=== PATIENT | female | born 1990 | race Caucasian/White ===

== ENCOUNTER 2018-11-15 18:55 | Inpatient (IN) | payer OTHER, SELFPAY ==
[2018-11-15] MEDS: Lactated Ringers 1,000 ML 50 ML IV ×3 (20:15→23:40)
[2018-11-15 20:19] VITALS: BMI 32.8
--- NOTE | 2018-11-15 21:04 | PCM.HPOB.BLA ---
History and Physical Date of Admission: 11/15/18 OB HISTORY AND PHYSICAL EXAMINATION History of this : 27 yo female Ab1 with EDC 11/16/2018 by Ultrasound, presents to Labor and Delivery at 39 6/7 wk EGA with CC of [facility]. Last ofc check 1 cm. Now 4 cm. care remarkable for - A positive. GBS NEGATIVE. Rubella immune. 1.) WANTS MSAFP TESTING Pertinent Past Medical History: None. Allergies: Morphine Medications: During - Flagyl 500 mg tablet; 28 mg iron-800 mcg tablet Review of Systems: Non-contributory PHYSICAL EXAMINATION General Appearence: 27 yo female in no acute distress Vital Signs: AF, VSS Heart: RRR without rubs or gallops Lungs: CTA x 2 Breasts: deferred Abdomen: gravid Pelvis: Cervix: 4 cm at presentation now at 6 80/ -2 Presentation: cephalic Size: AGA Movement: present Heart: present 130-140s avg variability Accels. category I tracing. [facility] q 1 1/2 - 2 mins. Impression /Plan: Intrauterine . 39 6/7 wk early labor. Admit. Plans epidural. Anticipate . See Progress Notes for Changes: Physician's Signature: Date: Patient seen and re-examined. History and physical updated at admission. Elder Saxena MD 11/15/18 [id number]
[2018-11-15 21:13] LABS: Absolute Neutrophil Count 7.9 X10^3/uL (2.0-7.7); Basophil# 0.04 X10^3/uL; Basophil% 0.4 % (0-1); Eosinophil# 0.07 X10^3/uL; Eosinophils% 0.6 % (0-5); Hematocrit 36.7 % (37-47); Hemoglobin 12.6 g/dL (12.0-15.0); Lymphocyte % 16.6 % (19-41); Mean Corp Hgb Conc 34.3 g/dL (32-36); Mean Corpuscular Hgb 31.3 pg (27.0-32.0); Mean Corpuscular Volume 91.1 fL (81-99); Mean Platelet Vol. 10.9 fl (6.2-12.0); Monocyte% 8.3 % (0-10); NRBC Flagged by Analyzer 0 % (0-5); Neutrophil # 7.94 X10^3/uL (2.7-7.7); Neutrophil % 73.5 % (47-70); Platelet Count 213 K/mm3 (150-450); RBC Distribution Width CV 12.5 % (11.6-14.6); RBC Distribution Width SD 41.2 fl (35.1-43.9); Red Blood Count 4.03 M/mm3 (4.2-5.4); White Blood Count 10.8 K/mm3 (4.4-11.0)
[2018-11-15] MEDS: fentaNYL-bupivacaine (epidural) 100 ML BAG EPIDURAL (22:00)
[2018-11-15] MEDS: CHLORHEXIDINE GLUC 2% CLOTH 1 EACH TOWELETTE TOPICAL (22:22)
[2018-11-15] MEDS: Terbutaline 1 MG/ML Vial 0.25 MG SC (22:23)
--- NOTE | 2018-11-15 22:37 | PCM.PN.BLA ---
Progress Note LABOR PROGRESS NOTE Very uncomfortable initial test dose of epidural given, then bolus and infusion. Feeling much tailbone pain, pushy. Initial attempts at pushing, no descent Direct OP and LGA. AROM of forebag. AVSS EFM Intermittent FHR tracing... Scalp lead placed d/t initial poor tracing, intermittent tracing. FHR decel approx 12 min decel noted with no scalp stimulation. IV fluid bolus, O2 on. Position changes. L, R, Knee chest. No resolution. SC terbutaline. 0.25 mg given times one. 120-130s again with avg variability Accels. Fetus tolerating maternal kneeling position with torso straight, then tolerating hand and knees with peanut ball. Pt to OR. Double set up vs primary C/S depending on stability of FHR tracing. Continue position fetus will tolerate. A/P: 39 6/7 to 40 wk EGA IUP. Nonreassuring FHR tracing to now stable. Will begin pushing when appropriate in OR. LGA, watch descent and tolerance of labor.
[2018-11-16] VITALS (25 sets, daily range): BP systolic 107–124; BP diastolic 56–77; PULSE 67–98; RESP 14–18; TEMP 36.1–37.4; O2SAT 96–99
--- NOTE | 2018-11-16 01:18 | PCM.PN.BLA ---
Progress Note LABOR PROGRESS NOTE Multip with more than 3 hr without descent. UCs regular and appear adequate. IFM 120-130s avg variability. Category I at present. CX: complete + caput. OP No further descent -1 Significant maternal perineal edema A/P: term IUP. CPD. no descent in 3 hr with epidural , multip. Second stage arrest. Advised pt and spouse re findings. Proceed to primary C/S for CPD.
[2018-11-16] MEDS: Ondansetron 4 MG/2 ML Vial IV (01:21)
[2018-11-16] MEDS: Sodium Citrate/Citric Acid 30 ML UDC PO (01:21)
--- NOTE | 2018-11-16 01:23 | DCINST_ITS ---
Discharge Diet: No Restrictions Discharge Activity: May Shower, May Take a Tub Bath May resume sexual activity in: 4-6 weeks Lifting Restrictions: 20 pounds Additional Activity Instructions:: Nothing in the vagina for 4-6 weeks. You may return to work/school in 6 weeks. Change Dressing in (Days):: 7 Remove Dressing in (days):: 7 Cleanse incision/area with: Soap & Water, Keep Dressing Clean & Dry Additional Instructions: If you experience any of the following, contact your healthcare provider. * Bleeding that soaks a pad every hour for 2 hours * Fever 100.4 or higher * Unrelieved incision or abdominal pain * Swelling, redness, discharge or bleeding from your incision * Problems urinating (including inability to urinate or burning while urinating). * Visual changes * Severe headache * Flu-like symptoms * Pain or redness in one of both of your breasts * Pain, warmth, tenderness or swelling in your legs, especially the calf area * Frequent nausea and vomiting * Symptoms of depression or anxiety If you experience any of the following, call 911 or go to the nearest Emergency Room. * Chest pain * Problems breathing * Seizure activity * Partial or complete paralysis of a body part, slurred speech, weakness or drooping of the face, or a sudden inability to walk or hold your balance Allergies/Adverse Reactions: Allergies amoxicillin [From Augmentin] Allergy (Verified 11/15/18 20:20) Rash clavulanic acid [From Augmentin] Allergy (Verified 11/15/18 20:20) Rash morphine Allergy (Verified 11/15/18 20:20) Nausea Medications to take at Discharge Magnesium 11/15/18 Pnv No.95/Ferrous Fum/Folic AC [ Caplet] 1 ea PO 11/15/18 Docusate Sodium [Colace] 100 mg PO BID #30 cap 11/16/18 Naproxen [Naprosyn] 250 - 500 mg PO TID PRN PRN #30 tab 11/16/18 Oxycodone [Oxyir] 5 - 10 mg PO Q6H PRN PRN 7 Days #20 tablet 11/16/18 Polyethylene Glycol 3350 [Miralax] 17 gm PO DAILY PRN #14 packet 11/16/18 The following prescriptions were given: Docusate Sodium [Colace] 100 mg PO BID #30 cap Transmission Status: Pending to [facility]/pharmacy #[id number] Polyethylene Glycol 3350 [Miralax] 17 gm PO DAILY PRN #14 packet PRN Reason: Constipation Transmission Status: Pending to [id number] Naproxen [Naprosyn] 250 - 500 mg PO TID PRN PRN #30 tab PRN Reason: Mild-Mod Pain (1-09/08) Transmission Status: Pending to [id number] Oxycodone [Oxyir] 5 - 10 mg PO Q6H PRN PRN 7 Days #20 tablet PRN Reason: Mod-Severe Pain (-02/08) Transmission Status: Received by [id number] Follow-Up: Call to make an appointment with your doctor for an incision check in 1-2 weeks. You will also need a 6 week post- follow up appointment. Test results from this visit will be discussed in further detail at your follow- up appointment, if applicable. Please Follow Up With: Eva Saxena MD - [phone] When: Call to make an appointment for an incision check in 2 weeks. Primary Care Physician: Care Physician,No Primary [Primary Care Provider] - Proposed Discharge Date: 11/19/18
[2018-11-16] MEDS: Cefazolin 2 GM in 0.9% Normal Saline 100 ML IV (01:37)
[2018-11-16] MEDS: Methylergonovine 0.2 MG/ML Ampul IM (01:50)
[2018-11-16] MEDS: Ketorolac 30 MG/ML Syringe IV ×4 (02:24→21:00)
[2018-11-16] MEDS: Oxytocin 30 units/NS 500 ml 30 UNITS/500 ML IV.SOLN 167 UNITS IV (03:00)
[2018-11-16] MEDS: Lactated Ringers 1,000 ML 100 ML IV ×2 (04:09→13:48)
--- NOTE | 2018-11-16 05:27 | NURSING ---
Epidural catheter dc'd, blue tip intact.
--- NOTE | 2018-11-16 06:12 | PCM.PN.OB ---
Subjective: POD#0 Day of delivery Primary C/S failure to descend. OP. Doing ok. Incision sore , more with moving. Bottle feeding. - Physical Exam General: Alert, Oriented x3, Cooperative, No apparent distress HEENT: Atraumatic, EOMI Neck: Supple Abdomen: Soft - Fundus firm NT at umbilicus. Skin: Incision - Mepilex CDI. Psych/Mental Status: Normal Affect Vital Signs Temp Pulse Resp BP Pulse Ox 98.6 F 78 18 109/65 98 11/16/18 06:00 11/16/18 06:00 11/16/18 06:00 11/16/18 06:00 11/16/18 06:00 Oxygen Delivery Method Room Air Weight: 95 kg Body Mass Index (BMI) 32.8 Intake and Output for Last 24 Hours 11/14/18 11/15/18 11/16/18 23:59 23:59 23:59 Intake Total 3879 / 3879 Output Total 550 / 550 Balance 3329 / 3329 Laboratory Tests Past 24 Hrs 11/15/18 11/15/18 20:15 20:15 WBC 10.8 RBC 4.03 L Hgb 12.6 Hct 36.7 L MCV 91.1 MCH 31.3 MCHC 34.3 RDW Std Deviation 41.2 RDW Coeff of Myles 12.5 Plt Count 213 MPV 10.9 Immature Gran % (Auto) 0.600 Neut % (Auto) 73.5 H Lymph % (Auto) 16.6 L Stoddard % (Auto) 8.3 Eos % (Auto) 0.6 Baso % (Auto) 0.4 Absolute Neuts (auto) 7.9 H Absolute Lymphs (auto) 1.80 Absolute Nucleated RBC 0.00 Nucleated RBC % 0 Blood Type A POSITIVE Antibody Screen NEGATIVE Medical Necessity - Tobacco Use Smoking Status: Former smoker Assessment/Plan POD#0 Primary C/S CPD. Failure to descend. Direct OP Stable postop Urine clear. Pain control adequate, sore at incision. Plans to bottle feed. Continue routine care.
--- NOTE | 2018-11-16 08:32 | PCM.OPRPT ---
Report of Operation Date of Procedure: 11/16/18 Pre-Operative Diagnosis: 39 6/7 wk labor. Post-Operative Diagnosis: 40 wk EGA delivery by C section for failure to descend Description of Surgical Findings:: Kimball viable male VTX direct OP Wedged into maternal pelvis. Pressure from below to deliver VTX. Weight: 8# 10 oz. Ap 8/9. Normal fallopian tubes, ovaries, and uterus. hospital corpsman: Jonelle Richmond Type of Anesthesia:: Epidural/Supplement Anesthesiologist: John Malave MD Specimen's removed: Placenta Drains: Velazquez Estimated Blood Loss (mL): 1000 Fluids Replaced: LR - Complications none Delivery Classification: JOSEPH Final ENIO: 11/16/18 Final ENIO Source: US <20 weeks Gestational age: 40 Weeks and 0 Days Indications: 40 wk EGA and no descent for 3 hr after C & P. VTX direct OP. Attempted placement of Kiwi to vacuum assist descent but unable to obtain adequate seal. Abandoned this To primary C section. Indications for : Failure of Descent Description of Procedure: Narrative account: After the risks, benefits and alternatives of the procedure were reviewed with the patient, informed consent was obtained. The patient was taken to the Operating room with an IV running , a Velazquez catheter in place and epidural catheter in place initially for pushing in the OR given nonreassuring FHR tracing in labor and delivery room (12 min + deceleration to 80-90) . After complete and pushing for 3 hrs without further descent, she was positioned on the operating table and the epidural was dosed to surgical levels. She was prepped and draped , including a vaginal vault prep, in the usual sterile fashion. Once the epidural was deemed adequate, a Pfannenstiel skin incision was created using the knife. The incision was carried down to the rectus fascia using the knife. The fascia was nicked in the midline. The fascial incision was extended bilaterally using curved Horner scissors. The superior aspect of the fascial incision was grasped with Holland clamps and tented up and the underlying rectus abdominal muscles were dissected free. In a similar manner, the inferior aspect of the facial incision was grasped with Holland clamps tented up and the underlying rectus abdominal muscles were dissected free. The rectus abdominis muscles were in the midline and the peritoneum was identified and entered by blunt dissection high in the incision. The peritoneum was stretched laterally and a bladder blade was inserted. A bladder flap was created along the lower uterine segment with Metzenbaum scissors . The uterine incision was then created using Metzenbaum scissors. The operators fingertips were used to extend the uterine incision by blunt dissection in a caudad- cephalad orientation . Clear fluid was noted at amniotomy. The vertex was then delivered atraumatically through the incision from direct OP position. The OP and nares were bulb suctioned on the abdomen. The shoulders delivered easily . The cord clamped x two and cut. And the infant was handed off to the nurse awaiting delivery after briefly showing him to his parents. The baby had good tone and a spontaneous vigorous cry. The placenta was then delivered. The uterus was exteriorized and cleared of clots and debris . The uterine incision was repaired with 1 Vicryl in a running locked fashion. A second imbricating layer of 1 Monocryl was placed. Bovie cautery was used to treat any bleeding areas . Excellent hemostasis was noted. There was a small hematoma noted at the left uterine angle extending down from the incision. This area appeared soft and not extending. At this point the uterus was returned to the abdominal cavity. The gutters were cleared of clots and debris and the incision at the uterus was inspected. The left uterine angle was oversewn with a horizontal mattress stitch of 1 Vicryl. The hematoma remained soft, and did not appear to be extending. Excellent hemostasis was noted. Hunter was dusted over the uterine incision for continued hemostasis. The peritoneal edges and rectus abdominis muscles were reapproximated in the midline with a series of vertical mattress stitches of 1 Vicryl. Excellent hemostasis was noted at the subfascial space Hunter was dusted over this layer for hemostasis. The fascia was closed in a running nonlocked fashion with a Stratofix. The Subcutaneous fatty tissue was Bovie cauterized as needed for hemostasis. Hunter was applied to prevent seroma formation. This layer was then reapproximated in a single layer closure of running 3-0 Vicryl to eliminate space. The skin edges were closed in a Subcuticular stitch of 4-0 Monocryl. The incision was cleansed. Cavilon, Steristrips, and Mepilex dressing were applied to the skin . The patient was then transferred to the recovery room bed in stable condition after tolerating the procedure well. Sponge, lap, needle and instrument counts correct times two. Medications given preop and intraoperatively included: Ancef 2 gm IV one were given non destructive evaluation manager to the operating room. The patient also received Pitocin given IV after cord clamp, and Toradol 30 mg IV times one. For a complete listing of medications given preop and intraoperatively, please see the anesthesia record. Amniotic Membrane Rupture Type: Artificial Amniotic Fluid Description: Clear Placenta Disposition: [facility] Specimen(s) sent to pathology: cord gases Drain: Velazquez to straight drain Fluids Replaced: LR Cord Entanglement: None Cord Vessel Description: 3 Vessels Esitmated Blood Loss (ml): 1000 Infant Gender: Male (1 minute): 8 (5 minute): 9 Delayed cord clamping: No Pre-op Antibiotic Given: Ancef 2 grams IV x1 Complications: None - Admit VTE Documentation VTE Present on Admission: No VTE Mechan Device Prophylaxis: SCD's VTE Pharm Prophylaxis ordered?: No
[2018-11-16] MEDS: 0.9% Saline Lock 10 ML Syringe IV ×3 (09:31→21:01)
[2018-11-16] MEDS: Acetaminophen 500 MG Tablet 1000 MG PO ×2 (09:47→18:00)
[2018-11-16] MEDS: Senna/Docusate Sodium 1 Tablet PO (21:18)
[2018-11-17] VITALS: BP 115/59; PULSE 87; RESP 16; TEMP 36.7; O2SAT 99
[2018-11-17 02:35] VITALS: BP 98/56; PULSE 80; RESP 16; TEMP 36.8; O2SAT 98
[2018-11-17] MEDS: Ketorolac 30 MG/ML Syringe IV ×4 (02:59→20:48)
[2018-11-17] MEDS: 0.9% Saline Lock 10 ML Syringe IV ×3 (02:59→20:49)
[2018-11-17 05:51] LABS: Hematocrit 27.1 % (37-47); Hemoglobin 9.1 g/dL (12.0-15.0); Mean Corp Hgb Conc 33.6 g/dL (32-36); Mean Corpuscular Hgb 30.8 pg (27.0-32.0); Mean Corpuscular Volume 91.9 fL (81-99); Mean Platelet Vol. 10.4 fl (6.2-12.0); Platelet Count 157 K/mm3 (150-450); RBC Distribution Width CV 13.2 % (11.6-14.6); RBC Distribution Width SD 43.6 fl (35.1-43.9); Red Blood Count 2.95 M/mm3 (4.2-5.4); White Blood Count 9.1 K/mm3 (4.4-11.0)
[2018-11-17 08:56] VITALS: BP 103/64; PULSE 88; RESP 16; TEMP 36.8; O2SAT 99
[2018-11-17] MEDS: Ferrous Gluconate 324 MG Tablet PO ×2 (08:58→15:32)
[2018-11-17] MEDS: Senna/Docusate Sodium 1 Tablet PO (09:10)
[2018-11-17] MEDS: oxyCODONE 5 MG Tablet PO ×3 (09:50→22:50)
--- NOTE | 2018-11-17 10:15 | PCM.PN.OB ---
Subjective: Patient without complaints. Tolerating diet well. Positive flatus. Minimal vaginal bleeding. Bottlefeeding baby. - Physical Exam Vital Signs Temp Pulse Resp BP Pulse Ox 98.2 F 88 16 103/64 99 11/17/18 08:56 11/17/18 08:56 11/17/18 08:56 11/17/18 08:56 11/17/18 08:56 Oxygen Delivery Method Room Air Weight: 209 lb 7.026 oz Body Mass Index (BMI) 32.8 Intake and Output for Last 24 Hours 11/15/18 11/16/18 11/17/18 23:59 23:59 23:59 Intake Total 5778 / 6060 282 / 282 Output Total 1950 / 1950 400 / 400 Balance 3828 / 4110 -118 / -118 Laboratory Tests Past 24 Hrs 11/17/18 05:40 WBC 9.1 RBC 2.95 L Hgb 9.1 L Hct 27.1 L MCV 91.9 MCH 30.8 MCHC 33.6 RDW Std Deviation 43.6 RDW Coeff of Myles 13.2 Plt Count 157 MPV 10.4 Hemoglobin okay. Medical Necessity - Tobacco Use Smoking Status: Former smoker Assessment/Plan Doing well postoperative day #1 status post section. Continuing present care. Iron started.
[2018-11-17 14:03] VITALS: BP 107/69; PULSE 86; RESP 16; TEMP 36.6; O2SAT 99
[2018-11-17 20:45] VITALS: BP 115/70; PULSE 91; RESP 18; TEMP 36.9; O2SAT 97
[2018-11-18 02:15] VITALS: BP 112/69; PULSE 84; RESP 18; TEMP 36.4; O2SAT 97
[2018-11-18] MEDS: Naproxen 250 MG Tablet PO ×2 (03:44→11:49)
[2018-11-18] MEDS: oxyCODONE 5 MG Tablet PO ×2 (07:01→11:48)
[2018-11-18 08:30] VITALS: BP 111/71; PULSE 78; RESP 18; TEMP 36.7; O2SAT 96
[2018-11-18] MEDS: Acetaminophen 500 MG Tablet 1000 MG PO (08:53)
[2018-11-18] MEDS: Ferrous Gluconate 324 MG Tablet PO (08:56)
--- NOTE | 2018-11-18 10:50 | PCM.PN.OB ---
Subjective: Passing flatus, no bowel movement. Tolerates PO. She is sore, but pain manageable. Denies heavy lochia. Objective: avss - Physical Exam General: Alert, Oriented x3, Cooperative, No apparent distress HEENT: Atraumatic, Normocephalic Lungs: Clear to auscultation, Normal air movement Cardiovascular: Regular rate, Regular Rhythm, Normal S1, Normal S2 Abdomen: Soft, Non Tender, Non-Distended, - - Fundus firm and nontender, incisional dressing c/d/i Extremities: No Calf Tenderness, - - +1 b/l LE edema Neurological: Neuro grossly intact Psych/Mental Status: Normal Affect, Appropriate, Alert and oriented to time, place, person, mood and affect Vital Signs Temp Pulse Resp BP Pulse Ox 98.0 F 78 18 111/71 96 11/18/18 08:30 11/18/18 08:30 11/18/18 08:30 11/18/18 08:30 11/18/18 08:30 Oxygen Delivery Method Room Air Weight: 95 kg Body Mass Index (BMI) 32.8 Intake and Output for Last 24 Hours 11/16/18 11/17/18 11/18/18 23:59 23:59 23:59 Intake Total 5778 / 6060 282 / 282 Output Total 1950 / 1950 400 / 400 Balance 3828 / 4110 -118 / -118 Medical Necessity - Tobacco Use Smoking Status: Former smoker Assessment/Plan 27yo POD#2 s/p PLTCS doing well. -Rubella immune, A positive -Routine postop care -d/c home today
--- NOTE | 2018-11-18 10:57 | PCM.DC.SUM ---
Discharge Date and Diagnosis Date of Admission: 11/15/18 Date of Discharge: 11/18/18 Hospital Course and Treatment Operations: - - Primary Low transverse section Procedures: None Summary of Care Provided: The patient is a 27 year old admitted at 39 6/7 weeks gestation in labor. She underwent a section for arrest of descent at 40 weeks gestational age. Her post-operative course was unremarkable and she was discharged to home on postoperative day #2. - Physical Exam Vital Signs Temp Pulse Resp BP Pulse Ox 98.0 F 78 18 111/71 96 11/18/18 08:30 11/18/18 08:30 11/18/18 08:30 11/18/18 08:30 11/18/18 08:30 Oxygen Delivery Method Room Air Weight: 95 kg Body Mass Index (BMI) 32.8 Intake and Output for Last 24 Hours 11/16/18 11/17/18 11/18/18 23:59 23:59 23:59 Intake Total 5778 / 6060 282 / 282 Output Total 1950 / 1950 400 / 400 Balance 3828 / 4110 -118 / -118 Discharge Diet: No Restrictions Discharge Activity: May Shower, May Take a Tub Bath May resume sexual activity in: 4-6 weeks Additional Activity Instructions:: Nothing in the vagina for 4-6 weeks. You may return to work/school in 6 weeks. Change Dressing in (Days):: 7 Remove Dressing in (days):: 7 Cleanse incision/area with: Soap & Water, Keep Dressing Clean & Dry Home Medications: Medications to take at Discharge Magnesium 11/15/18 Pnv No.95/Ferrous Fum/Folic AC [ Caplet] 1 ea PO 11/15/18 Docusate Sodium [Colace] 100 mg PO BID #30 cap 11/16/18 Naproxen [Naprosyn] 250 - 500 mg PO TID PRN PRN #30 tab 11/16/18 Oxycodone [Oxyir] 5 - 10 mg PO Q6H PRN PRN 7 Days #20 tab 11/16/18 Polyethylene Glycol 3350 [Miralax] 17 gm PO DAILY PRN #14 packet 11/16/18 Following Prescrptions Were Given to Patient: Docusate Sodium [Colace] 100 mg PO BID #30 cap Transmission Status: Re[facility] by [id number] Polyethylene Glycol 3350 [Miralax] 17 gm PO DAILY PRN #14 packet PRN Reason: Constipation Transmission Status: Received by [id number] Naproxen [Naprosyn] 250 - 500 mg PO TID PRN PRN #30 tab PRN Reason: Mild-Mod Pain (1-09/08) Transmission Status: Re[facility] by [id number] Oxycodone [Oxyir] 5 - 10 mg PO Q6H PRN PRN 7 Days #20 tab PRN Reason: Mod-Severe Pain (-02/08) Transmission Status: Received by [id number] Primary Care Physician: Care Physician,No Primary [Primary Care Provider] - Please Follow Up With: Eva Saxena MD - [phone] When: Call to make an appointment for an incision check in 2 weeks. Medical Necessity - Tobacco Use Smoking Status: Former smoker Meaningful Use Info Meaningful Use Diagnoses (Choose all that apply): None applicable
== END 2018-11-18 12:15 | disposition home or self-care (01) | DRG 788 ==
PROVIDERS: Admitting Provider Obstetrics & Gynecology; Referring Provider Obstetrics & Gynecology; Visit Provider Obstetrics & Gynecology
DX: O32.4XX0 Maternal care for high head at term, not applicable or unspecified (principal); O36.63X0 Maternal care for excessive fetal growth, third trimester, not applicable or unspecified; O62.1 Secondary uterine inertia; O33.9 Maternal care for disproportion, unspecified; O76 Abnormality in fetal heart rate and rhythm complicating labor and delivery; Z87.891 Personal history of nicotine dependence; Z37.0 Single live birth; Z3A.40 40 weeks gestation of pregnancy
CPT/HCPCS: 59025; 59050; 85025; 85027; 86850; 86900; 99218; J7120; A4216; G0378; J2405